=== PATIENT | female | born 1955 | race Caucasian/White ===

== ENCOUNTER 2017-07-03 15:40 | Emergency (ER) | payer BC, OTHER ==
[~2017-07-03] VITALS: Ht 167.6 cm; Wt 79.4 kg
[~2017-07-03 15:40] MED LIST: AZIT-21 PO; CALC200T50 PO; CEPH500C PO; CETI10TA17 PO; CHOL10007 PO; D-ME118S33 PO; DICL18CA PO; HYDR1CAP2 PO; LORA10TA76 PO; MELO-195 PO; OMEP20TA7 PO; OXYC-12 PO; OXYC-471 PO; TOLTA4 PO; TRM50T PO
--- OUTSIDE RECORDS SUMMARY | 2017-07-03 15:46 | XMS REPORT | Continuity of Care Document ---
Author Author [facility] Organization [facility] Address Unknown Phone Unavailable Allergies Active Description Code Type Severity Reaction Onset Reported/Identified Relationship to Patient Clinical Status Yes pneumococcal vaccine [id number] Drug Allergy Unknown N/A 02/04/2016 Medications Problems Date Dx Coded Attending Type Code Diagnosis Diagnosed By 03/18/2014 ZEN RICHARDSON APRN Ot 490 11/11/2015 ANJELICA MOSES, JOHN Andujar Ot Z01.818 11/15/2015 ANJELICA MOSES, JONH Andujar Ot Z01.818 11/15/2015 ANJELICA MOSES, JOHN Andujar Ot K57.30 DVRTCLOS OF LG INT W/O PERFORATION OR AB 11/15/2015 ANJELICA MOSES, JOHN Andujar Ot Z12.11 ENCOUNTER FOR SCREENING FOR MALIGNANT NE 11/15/2015 ANJELICA MOSES, JOHN Andujar Ot Z83.71 FAMILY HISTORY OF COLONIC POLYPS 02/04/2016 LADY DPM, RIKKI Q Ot M20.11 HALLUX VALGUS (ACQUIRED), RIGHT FOOT 02/04/2016 LADY DPM, RIKKI Q Ot M20.41 OTHER HAMMER TOE(S) (ACQUIRED), RIGHT FO 02/04/2016 LADY DPM, RIKKI Q Ot Z01.818 ENCOUNTER FOR OTHER PREPROCEDURAL EXAMIN 02/04/2016 LADY DPM, RIKKI Q Ot Z11.2 ENCOUNTER FOR SCREENING FOR OTHER BACTER 02/05/2016 LADY DPM, RIKKI Q Ot M20.11 HALLUX VALGUS (ACQUIRED), RIGHT FOOT 02/05/2016 LADY DPM, RIKKI Q Ot M20.41 OTHER HAMMER TOE(S) (ACQUIRED), RIGHT FO 02/05/2016 LADY DPM, RIKKI Q Ot Z01.818 ENCOUNTER FOR OTHER PREPROCEDURAL EXAMIN 02/05/2016 LADY DPM, RIKKI Q Ot Z11.2 ENCOUNTER FOR SCREENING FOR OTHER BACTER 02/10/2016 LADY DPM, RIKKI Q Ot M20.11 HALLUX VALGUS (ACQUIRED), RIGHT FOOT 02/10/2016 LADY DPM, RIKKI Q Ot M20.41 OTHER HAMMER TOE(S) (ACQUIRED), RIGHT FO 02/10/2016 LADY DPM, RIKKI Q Ot M85.871 OTH DISRD OF BONE DENSITY AND STRUCTURE, 02/10/2016 LADY DPM, RIKKI Q Ot 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, RIGHT ANKLE AND PA 02/11/2016 LADY DPM, RIKKI Q Ot M20.11 HALLUX VALGUS (ACQUIRED), RIGHT FOOT 02/11/2016 LADY DPM, RIKKI Q Ot M20.41 OTHER HAMMER TOE(S) (ACQUIRED), RIGHT FO 02/11/2016 LADY DPM, RIKKI Q Ot M85.871 OTH DISRD OF BONE DENSITY AND STRUCTURE, 02/11/2016 LADY DPM, RIKKI Q Ot 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, RIGHT ANKLE AND PA 02/11/2016 LADY DPM, RIKKI Q Ot M20.11 HALLUX VALGUS (ACQUIRED), RIGHT FOOT 02/11/2016 LADY DPM, RIKKI Q Ot M20.41 OTHER HAMMER TOE(S) (ACQUIRED), RIGHT FO 02/11/2016 LADY DPM, RIKKI Q Ot M85.871 OTH DISRD OF BONE DENSITY AND STRUCTURE, 02/11/2016 LADY DPM, RIKKI Q Ot 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 Visit Date/Time Discharge Status Pt. Type Provider Facility Loc./Unit Complaint [id number] 07/31/2016 12:23:00 2015 23:59:59 CLS Outpatient WAQAR SOUTH APRN [facility] RAD SCREENING [id number] 02/10/2016 08:10:00 2015 16:55:00 DIS Outpatient LADY DPM, RIKKI Q [facility] RIGHT HALLUX VALGUS [id number] 02/04/2016 12:33:00 2015 14:01:00 DIS Outpatient LADY DPM, RIKKI Q [facility] PREOP RIGHT HALLUX VALGUS [id number] 11/15/2015 11:48:00 2015 15:20:00 DIS Outpatient JOHN DEJESUS MD [facility] SCREENING [id number] 11/11/2015 05:35:00 2015 23:59:59 CLS Outpatient JONH DEJESUS MD [facility] PREOP [id number] 03/18/2014 17:13:00 2013 19:08:00 DIS Emergency ZEN RICHARDSON APRN [facility] ER
--- NOTE | 2017-07-03 17:16 | Diagnostic Imaging Report ---
INDICATION: Left knee pain, fall. COMPARISON: None. EXAMINATION: Three views of the left knee were obtained. FINDINGS: Well-seated arthroplasty without dislocation. There is a questionable nondisplaced fracture of the fibular head. Please correlate with physical exam. There is no joint effusion. IMPRESSION: Questionable proximal fibular head fracture. Please correlate with physical exam. Dictated by: Dictated on workstation # [id number]
--- NOTE | 2017-07-03 17:18 | Diagnostic Imaging Report ---
INDICATION: Left leg pain, trauma. COMPARISON: None. EXAMINATION: Three views of the left tibia and fibula were obtained. FINDINGS: Probable nondisplaced fracture of the proximal fibula head. Please correlate with physical exam. The knee arthroplasty and the remainder of the tibia and fibula are intact. The ankle mortise is normal. IMPRESSION: Questionable nondisplaced fibular head fracture. Please correlate with physical exam. Dictated by: Dictated on workstation # [id number]
--- NOTE | 2017-07-03 17:31 | ED Lower Extremity ---
General Chief Complaint: Lower Extremity Stated Complaint: L KNEE PAIN SINCE WEDNESDAY Nursing Triage Note: c/o pain to left leg below left knee. Onset last Wednesday when she caught her leg on a curb. Pt did not fall. Hx of bilateral knee replacement. Nursing Sepsis Screen: No Definite Risk Source: patient, other Exam Limitations: no limitations History of Present Illness Time seen by provider: 17:20 Initial Comments Patient presents to ER by private conveyance with a significant other and chief complaint that about a week ago she was walking through the parking lot and tripped over one of the parking curbs but did not fall hit her knee rather she just caught her left foot. She has had both her knees replaced the left knee was replaced 15 years ago and since that time she's had some pain on the left lateral anterior portion of her tibial plateau and just inferior to that about 6 cm. She says the pain is more in the soft tissue than the bone but still difficult to tell. Since the time that the. Replacement was done she's not had a follow-up with a surgeon or have any problems with it. No other recent trauma to that knee. The surgeon who did that knee is retired. She has used NSAIDs and Tylenol as well as creams, heat and ice. She does not feel she is getting good improvement. She was at the ball game today and had to leave early because the pain was too great. Allergies and Home Medications Allergies Coded Allergies: pneumococcal vaccine (Verified Allergy, Unknown, 02/04/16) Home Medications Calcium Citrate 200 Mg Tablet, 200 MG PO DAILY, (Reported) Cephalexin 500 Mg Capsule, 500 MG PO Q8H, #21 Prescribed by: RIKKI NARAYANAN on 02/10/16 1433 Cetirizine HCl 10 Mg Tablet, 10 MG PO DAILY, #0 Prescribed by: CHERELLE BURDICK on 02/10/16 1018 Cholecalciferol (Vitamin D3) 1,000 Unit Capsule, 1,000 UNIT PO DAILY, (Reported) Diclofenac Submicronized 18 Mg Capsule, 18 MG PO TID PRN for joint pain, ( Reported) Omeprazole 20 Mg Tablet.dr, 20 MG PO DAILY, (Reported) Oxycodone HCl/Acetaminophen 1 Each Tablet, 1 EACH PO Q6H PRN for PAIN, #30 Prescribed by: RIKKI NARAYANAN on 02/10/16 1433 Constitutional: No chills, No fever, No malaise EENTM: No ear discharge, No ear pain Respiratory: No cough, No short of breath Cardiovascular: No chest pain, No palpitations Gastrointestinal: No nausea, No vomiting Genitourinary: No discharge, No dysuria Musculoskeletal: see HPI, No back pain, joint pain, joint swelling (left ankle) , muscle pain Skin: No pruritus, No rash Psychiatric/Neurological: Denies Headache, Denies Numbness, Denies Paresthesia Past Tkvfnah-Cvzdwj-Trrfbh Hx Patient Social History Alcohol Use: Occasionally Uses Recreational Drug Use: No Smoking Status: Never a Smoker Recent Foreign Travel: No Contact w/Someone Who Travel: No Recent Infectious Disease Expo: No Immunizations Up To Date Date of Influenza Vaccine: Jul 15, 2015 Reproductive System Hx Reproductive Disorders: No (HYSTERECTOMY) 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 Genitourinary Genitourinary Disorders: Bladder Infection Gastrointestinal Gastrointestinal Disorders: Gastroesophageal Reflux Musculoskeletal Musculoskeletal Disorders: Arthritis HEENT Loss of Vision: Bilateral Hearing Impairment: Denies Blood Transfusions Adverse Reaction to a Blood Tr: No (N/A) Physical Exam Vital Signs Vital Sign - Last 12Hours 07/03/ 16:14 Temp 98.2 Pulse 70 Resp 16 B/P (MAP) 138/76 Pulse Ox 98 Capillary Refill : Less Than 3 Seconds General Appearance: WD/WN, no apparent distress HEENT: PERRL/EOMI, pharynx normal Neck: full range of motion, normal inspection Cardiovascular: normal peripheral pulses, regular rate, rhythm Respiratory: no respiratory distress, no accessory muscle use Hips: right hip non-tender, bilateral hip normal inspection, bilateral hip normal range of motion, bilateral hip no evidence of injury, left hip soft tissue tenderness (over the greater trochanter) Knees: right knee non-tender, right knee normal inspection, right knee normal range of motion, right knee no evidence of injury, left knee bone tenderness ( anterior tibial plateau), left knee soft tissue tenderness (anterior lateral muscle compartment superior heads.) Ankles: bilateral ankle non-tender, bilateral ankle normal range of motion, right ankle no evidence of injury, left ankle swelling Neurologic/Tendon: normal sensation, normal motor functions, normal tendon functions, responds to pain Neurologic/Psychiatric: alert, oriented x 3 Skin: normal color, warm/dry Progress/Results/Core Measures Results/Orders My Orders Orders - ZIA RODRIGUEZ Knee, Left, 3 Views (07/03/17 16:59) Tibia/Fibula, Left, 2 Views (07/03/17 16:59) Vital Signs/I&O Vital Sign - Last 12Hours 07/03/17 16:14 Temp 98.2 Pulse 70 Resp 16 B/P (MAP) 138/76 Pulse Ox 98 Blood Pressure Mean: 96 Progress Note : Time: 17:41 Progress Note We'll put her in a posterior leg splint with a stirrup splint over that and have her follow up with orthopedic surgery outpatient. Diagnostic Imaging Diagonstic Imaging: Xray Plain Films/CT/US/NM/MRI: knee [facility] [place] [place] NAME: KEEGAN [facility]ULL [facility] REC#: [id number] PT STATUS: REG ER : 1955 PHYSICIAN: ZIA RODRIGUEZ MD ADMIT DATE: 07/03/17/ER Draft Date of Exam:07/03/17 KNEE, LEFT, 3 VIEWS INDICATION: Left knee pain, fall. COMPARISON: None. EXAMINATION: Three views of the left knee were obtained. FINDINGS: Well-seated arthroplasty without dislocation. There is a questionable nondisplaced fracture of the fibular head. Please correlate with physical exam. There is no joint effusion. IMPRESSION: Questionable proximal fibular head fracture. Please correlate with physical exam. Dictated on workstation # [id number] Dict: 07/03/171711 Trans: 07/03/171715 [facility] [id number] Interpreted by: SUKI RAY Electronically signed by: [facility] [place] [place] NAME: KEEGAN BULL [facility] REC#: [id number] PT STATUS: REG ER : 1955 PHYSICIAN: ZIA RODRIGUEZ MD ADMIT DATE: 07/03/17/ER Draft Date of Exam:07/03/17 TIBIA/FIBULA, LEFT, 2 VIEWS INDICATION: Left leg pain, trauma. COMPARISON: None. EXAMINATION: Three views of the left tibia and fibula were obtained. FINDINGS: Probable nondisplaced fracture of the proximal fibula head. Please correlate with physical exam. The knee arthroplasty and the remainder of the tibia and fibula are intact. The ankle mortise is normal. IMPRESSION: Questionable nondisplaced fibular head fracture. Please correlate with physical exam. Dictated on workstation # [id number] Dict: 07/03/171714 Trans: 07/03/171716 [facility] [id number] Interpreted by: SUKI RAY Electronically signed by: Reviewed: Reviewed by Me Departure Impression Impression: Primary Impression: Fracture of head of left fibula Qualified Codes: S82.832A - Other fracture of upper and lower end of left fibula, initial encounter for closed fracture Disposition: HOME, SELF-CARE Condition: Stable Departure-Patient Inst. Decision time for Depature: 18:00 Referrals: STEPHEN DRISCOLL MD (PCP/Family) Primary Care Physician Patient Instructions: Fibula Fracture (DC) Add. Discharge Instructions: Use Motrin 800 mg every 8 hours or Naprosyn 2 capsules twice a day for your pain. You may also use Tylenol or if this is not helping you may use the hydrocodone that is prescribed for you. Hydrocodone to be taken with a laxative daily as it may cause constipation as well as drowsiness. Wednesday morning call Dr. Contreras at [address] @ at [phone] and requests an appointment that week. You may also follow up with your primary care physician or any other orthopedic surgeon if you prefer. If you started to have increased pain or swelling or diminished sensation in your foot or toes you should loosen the splint and return to the ER. Keep the leg elevated above the level of your heart when possible, partial weightbearing is okay. Use ice over the area of swelling and pain for 20 minutes every 4-6 hours as needed. All discharge instructions reviewed with patient and/or family. Voiced understanding. Scripts Hydrocodone/Acetaminophen (Hydrocodon -Acetaminophen 5-325) 1 Each Tablet 1 EACH PO Q6H Y for BREAKTHROUGH PAIN, #15 TAB 0 Refills Prov: ZIA RODRIGUEZ 07/03/17 Work/School Note: Work Release Form Date Seen in the Emergency Department: Jul 03, 2017 Return to Work: Jul 09, 2017 Restrictions: Need Release from Doctor Copy Copies To 1: STEPHEN DRISCOLL MD Copies To 2: PEER,ZIA AREVALO MD Jul 03, 2017 17:31
[2017-07-03] MEDS ORDERED: HYDR-3812 PO (18:04)
[2017-07-03] MEDS ORDERED: RX-HYDROCODONE/APAP 5/325 MG #4 TAB PK PO PRN (19:00)
[2017-07-03 19:05] VITALS: BP 140/72
== END 2017-07-03 19:05 | disposition home or self-care (01) ==
LOC: EDUNIT# 15:40 → ER 15:42
DX: S82.832A Other fracture of upper and lower end of left fibula, initial encounter for closed fracture (principal); K21.9 Gastro-esophageal reflux disease without esophagitis; Z96.653 Presence of artificial knee joint, bilateral; Z90.710 Acquired absence of both cervix and uterus; W18.41XA Slipping, tripping and stumbling without falling due to stepping on object, initial encounter; Y92.481 Parking lot as the place of occurrence of the external cause
CPT/HCPCS: 29515; 73562; 73590

== ENCOUNTER → 2018-01-20 | Outpatient (CLI) | payer OTHER ==
[~2018-01-20] MED LIST changes: +ACHD5005 PO
--- NOTE | 2018-01-20 19:27 | Diagnostic Imaging Report ---
INDICATION: Routine screening. Comparison is made with prior mammogram from 07/31/2016 and 06/12/2011. 2-D and 3-D bilateral screening mammography with CAD was performed. The current study was also evaluated with a Computer Aided Detection (CAD) system. FINDINGS: Both breasts are heterogeneously dense, limiting the sensitivity of mammography. There is an area of increased density noted in lateral portion of the right breast best seen on the CC view far posterior. No correlate on the MLO view is seen. Additional views are recommended. The left breast is unremarkable. No suspicious microcalcifications are seen. The axillae are unremarkable. IMPRESSION: Right breast density. Additional views including spot compression and rolled CC views are recommended. ACR BI-RADS Category 0: Incomplete. (Needs additional imaging evaluation). Result letter will be mailed to the patient. Note: At least 10% of breast cancer is not imaged by mammography. Dictated by: Dictated on workstation # [id number]
== END ==
LOC: RAD 09:06
PROVIDERS: ATTEND Nurse Practitioner Family
DX: Z12.31 Encounter for screening mammogram for malignant neoplasm of breast (principal)
CPT/HCPCS: 77067

== ENCOUNTER → 2018-02-03 | Outpatient (CLI) | payer OTHER ==
[~2018-02-03] MED LIST changes: +IOHEXOL 350 MG/ML 100 ML (OMNIPAQUE 350) VIAL IV ONE; +NS 250 ML (IVPB) BAG IV ONE
[2018-02-03 09:52] LABS: BUN/CREATININE RATIO 19; CREATININE SERUM 0.75 MG/DL (0.60-1.30); GFR ESTIMATED > 60
--- NOTE | 2018-02-03 13:10 | Diagnostic Imaging Report ---
PROCEDURE: CT chest with contrast only. TECHNIQUE: Multiple contiguous axial images were obtained through the chest after administration of intravenous contrast. INDICATION: Ascending aortic enlargement and cardiac enlargement with mediastinal widening. No prior studies are available for comparison. The ascending thoracic aorta is normal caliber. Aortic arch and descending aorta are normal caliber. No aneurysm or dissection is seen. No axillary, mediastinal or hilar lymphadenopathy is detected. No pericardial or pleural fluid is identified. No pulmonary infiltrates, nodules or masses are seen. Upper abdomen demonstrates hepatic steatosis. IMPRESSION: Essentially unremarkable CT of the chest. There is no evidence of thoracic aortic aneurysm. Dictated by: Dictated on workstation # [id number]
== END ==
LOC: RAD 09:23
PROVIDERS: ATTEND Nurse Practitioner Family
DX: I77.89 Other specified disorders of arteries and arterioles (principal); J98.59 Other diseases of mediastinum, not elsewhere classified; I51.7 Cardiomegaly
CPT/HCPCS: 36415; 71260; 82565; 84520

== ENCOUNTER → 2018-02-11 | Outpatient (CLI) | payer OTHER ==
[~2018-02-11] MED LIST changes: -IOHEXOL 350 MG/ML 100 ML (OMNIPAQUE 350) VIAL IV ONE; -NS 250 ML (IVPB) BAG IV ONE
--- NOTE | 2018-02-11 17:53 | Diagnostic Imaging Report ---
INDICATION: Right breast density. Patient presents for additional views. COMPARISON: Correlation is made with recent screening study from 01/20/2018. TECHNIQUE: 2D and 3D unilateral right diagnostic mammography was performed. Views included spot compression CC and ML as well as conventional, 90 degree lateral, and rolled CC views. The current study was also evaluated with a Computer Aided Detection (CAD) system. FINDINGS: Right breast is heterogeneously dense, limiting sensitivity of mammography. Additional views fail to demonstrate a discrete mass. There appears to be normal dispersion of fibroglandular elements in the outer right breast with additional views. No suspicious calcifications are seen. IMPRESSION: Additional views fail to demonstrate a discrete mass. The area of density noted on recent screening study most likely represents superimposed fibroglandular tissue. Even so, directed sonographic interrogation of the upper-outer right breast is recommended and will be performed this morning. ACR BI-RADS Category 0: Incomplete. (Needs additional imaging evaluation). Result letter will be mailed to the patient. Note: At least 10% of breast cancer is not imaged by mammography. Dictated by: Dictated on workstation # [id number]
--- NOTE | 2018-02-11 17:57 | Diagnostic Imaging Report ---
INDICATION: Abnormal mammogram upper-outer right breast. Correlation is made with the diagnostic study earlier the same day. FINDINGS: Sonographic interrogation of the right breast upper-outer location was performed. No solid or cystic mass is detected. There are two lymph nodes present in the right breast, one at 8 o'clock and one at 9 o'clock, both subcentimeter in size. IMPRESSION: No sonographic abnormality is detected. Patient may return to routine annual screening mammography. ACR BI-RADS Category 1: Negative. Dictated by: Dictated on workstation # [id number]
== END ==
LOC: RAD 07:34
PROVIDERS: ATTEND Nurse Practitioner Family
DX: R92.2 Inconclusive mammogram (principal)

== ENCOUNTER → 2018-02-25 | Outpatient (CLI) | payer OTHER ==
[~2018-02-25] VITALS: Ht 170.2 cm; Wt 83.0 kg
[~2018-02-25] MED LIST changes: +CATHETER FLUSH 10 ML SYR IV PRN; +REGADENOSON 0.4 MG/5 ML SYR (LEXISCAN) IV ONE
[2018-02-25 09:13] VITALS: BP 140/83
--- NOTE | 2018-03-01 13:23 | STRESS TEST ---
DATE OF SERVICE: 02/25/2018 RESTING AND POST REGADENOSON TECHNETIUM-99M TETROFOSMIN SPECT CT IMAGING ORDERING PHYSICIAN: Dr. Suresh. PRIMARY CARE PHYSICIAN: Dr. Soto. CLINICAL DIAGNOSIS: Chest discomfort, shortness of breath. Baseline images were carried out after injection of 10.89 mCi of technetium-99m tetrofosmin. This was followed by 0.4 mg regadenoson and 30 mCi technetium-99m tetrofosmin for stress imaging. The electrocardiogram showed sinus rhythm with right bundle branch block throughout the study and did not change significantly with the regadenoson infusion. The patient tolerated the procedure well. Review of images at rest and following stress did not indicate any significant perfusion defects consistent with significant myocardial ischemia or infarction. Gated images show normal global left ventricular systolic function with normal regional wall motion. Left ventricular ejection fraction is calculated to be 77%. Left ventricular end-diastolic volume is 72 mL. TID is absent (1.02). CONCLUSIONS: 1. No evidence of any significant myocardial ischemia or infarction on this study. 2. Normal regional wall motion. 3. Normal global left ventricular systolic function with a calculated ejection fraction of 77%. Job ID: [id number] DocumentID: [id number] Dictated Date: 03/01/2018 10:53:17 Inspector Cold Working Date: 03/01/2018 13:22:40 Dictated By: GEOVANNY SURESH MD, MA, FACP, FACC,
== END ==
LOC: CARD 06:46
PROVIDERS: ATTEND Internal Medicine Cardiovascular Disease
DX: R07.89 Other chest pain (principal); R06.02 Shortness of breath; I45.19 Other right bundle-branch block
CPT/HCPCS: 78452; 93017; 93306

== ENCOUNTER → 2019-05-16 | Outpatient (CLI) | payer OTHER ==
[~2019-05-16] MED LIST changes: -CATHETER FLUSH 10 ML SYR IV PRN; -REGADENOSON 0.4 MG/5 ML SYR (LEXISCAN) IV ONE
--- NOTE | 2019-05-16 21:14 | Diagnostic Imaging Report ---
INDICATION: Screening The current study was also evaluated with a Computer Aided Detection (CAD) system. 3-D Tomographic imaging was also performed. Comparison is made with prior examination from 01/20/2018, 07/31/2016, and 07/04/2012. FINDINGS: The fibroglandular tissue is heterogeneously dense bilaterally. There is an unchanged nodular density in the lateral aspect of the right breast. There are few benign type calcifications. There is no new dominant mass, spiculated lesion or suspicious calcification identified. Skin, nipples, and axilla are unremarkable. IMPRESSION: ACR BI-RADS Category 2: Benign findings. Result letter will be mailed to the patient. Note: At least 10% of breast cancer is not imaged by mammography. Dictated by: Dictated on workstation # [id number]
== END ==
LOC: RAD 10:46
PROVIDERS: ATTEND Nurse Practitioner Family
DX: Z12.31 Encounter for screening mammogram for malignant neoplasm of breast (principal)
CPT/HCPCS: 77067

== ENCOUNTER → 2021-07-17 | Outpatient (CLI) | payer OTHER ==
[~2021-07-17] MED LIST changes: -OXYC-471 PO; +OXYC1TAB11 PO
--- NOTE | 2021-07-17 15:00 | Diagnostic Imaging Report ---
Digital mammogram. Indication: Bilateral screening This study was compared to the prior exam of 05/16/2019 and 01/20/2018. At this time there are no current complaints. The fibroglandular tissue in both breasts is dense. This does limit the sensitivity of this exam. On the tomographic images of the left breast in the mid lateral aspect of the breast at middle depth there is a region of architectural distortion (slice 37/71 slab 1). This finding cannot be identified with certainty on the MLO view. By history the patient has had prior breast biopsies and this may be secondary to scar formation from the previous breast biopsy. Even so, I would recommend that a compression view of this area be obtained in the craniocaudad projection as well as a true lateral view left breast for further study. Ultrasound should be performed as well. The right breast is unchanged. Impression: Additional mammographic views and ultrasound left breast recommended for further study. ACR BI-RADS Category 0: Incomplete. (Needs additional imaging evaluation). Result letter will be mailed to the patient. Note: At least 10% of breast cancer is not imaged by mammography. Dictated by: Dictated on workstation # [id number]
== END ==
LOC: RAD 11:28
PROVIDERS: ATTEND Pediatrics
DX: Z12.31 Encounter for screening mammogram for malignant neoplasm of breast (principal)
CPT/HCPCS: 77063; 77067